=== PATIENT | female | born 2000 | race African-American/Black ===

== ENCOUNTER 2021-06-14 10:06 | Emergency (ER) | payer OTHER ==
[~2021-06-14] VITALS: Ht 154.9 cm; Wt 68.0 kg
[2021-06-14] MEDS ORDERED: IBUPROFEN 800MG TABLET PO ONE (11:30)
[2021-06-14 11:50] VITALS: BP 129/80
== END 2021-06-14 13:32 | disposition home or self-care (01) ==
LOC: ER 10:06
DX: M94.0 Chondrocostal junction syndrome [Tietze] (principal); Z88.0 Allergy status to penicillin
CPT/HCPCS: 93005; 99283